=== PATIENT | male | born 1995 | race Caucasian/White ===

== ENCOUNTER 2019-01-25 14:56 | Emergency (ER) | payer SELFPAY ==
[~2019-01-25] VITALS: Ht 157.5 cm; Wt 54.4 kg
[2019-01-25 15:16] VITALS: BP 122/63
--- NOTE | 2019-01-25 15:50 | NUR ---
23 YEAR OLD MALE COMPLAINS OF NAUSEA AND VOMITTING X 2 DAYS. PATIENT STATES HE STARTED TO HAVE DIARRHEA TODAY. PATIENT STATES HE SOMETIMES FEELS PALPITATIONS IN THE PAST 2 DAYS, DENIES THEM AT THIS TIME. PATIENT BOWEL SOUNDS ACTIVE X4, NO PAIN ON PALPATION. PATIENT IS ALERT AND ORIENTED, BREATHING EVEN AND UNLABORED, SKIN DRY AND WARM. BED IN LOWEST POSITION, LOCKED, BED RAIL UPX1.
[2019-01-25] MEDS ORDERED: PROMETHAZINE 25 MG/ML VIAL IM ONE (16:15)
[2019-01-25] MEDS ORDERED: ONDANSETRON 4 MG ODT PO ONE (16:15)
[2019-01-25] MEDS ORDERED: FAMOTIDINE 20 MG TAB PO ONE (16:15)
[2019-01-25] MEDS ORDERED: KETOROLAC 60 MG/2 ML VIAL IM ONE (16:15)
--- NOTE | 2019-01-25 16:30 | NUR ---
PATIENT ALERT AND ORIENTED IN BED TALKING TO GIRLFRIEND, BREATHING EVEN AND NONLABORED, WILL CONTINUE TO MONITOR.
[2019-01-25 16:39] LABS: BARBITURATE, URINE NEG. ng/ml (NEG <=200); BENZODIAZEPINE, URINE NEG. ng/mL (NEG <=200); CANNABINOID, URINE NEG. ng/mL (NEG <=50); COCAINE, URINE NEG. ng/mL (NEG <=300); OPIATE, URINE NEG. ng/mL (NEG <=2000); PHENCYCLIDINE SCREEN,URINE NEG. ng/mL (NEG <=25)
[2019-01-25 17:04] VITALS: BP 120/63
--- NOTE | 2019-01-25 17:04 | NUR ---
Patient discharged with v/s stable. Written and verbal after care instructions ABOUT ANXIETY AND PANIC ATTACKS given and explained. Patient alert, oriented and verbalized understanding of instructions. Ambulatory with steady gait. All questions addressed prior to discharge. ID band removed. Patient advised to follow up with PMD. Rx of VISTARIL given. Patient educated on indication of medication including possible reaction and side effects. Opportunity to ask questions provided and answered. EXCUSE FROM WORK GIVEN
[2019-01-25 22:13] LABS: APPEARANCE,URINE CLEAR (CLEAR); BILIRUBIN,URINE NEGATIVE (NEGATIVE); BLOOD, URINE NEGATIVE (NEGATIVE); COLOR,URINE YELLOW (YELLOW); LEUKOCYTE ESTERASE ,URINE NEGATIVE (NEGATIVE); NITRITE, URINE NEGATIVE (NEGATIVE); PH,URINE 6.5 (5.0-9.0); UGLUCOSE NEGATIVE (NEGATIVE)
== END 2019-01-25 17:04 | disposition home or self-care (01) ==
LOC: MED 14:56
DX: F41.9 Anxiety disorder, unspecified (principal)
CPT/HCPCS: 80305; 81003; 96372; 99283; J2550; Q0162; J1885

== ENCOUNTER 2019-02-05 11:31 | Emergency (ER) | payer SELFPAY ==
[~2019-02-05] VITALS: Ht 157.5 cm; Wt 54.4 kg
[2019-02-05 11:37] VITALS: BP 134/75
--- NOTE | 2019-02-05 11:45 | NUR ---
FLU SWAB COLLECTED
--- NOTE | 2019-02-05 11:59 | NUR ---
PT BIB FAMILY C/O COUGH X2 DAYS AND FEVER, N/V, AND BODY ACHES X LAST NIGHT. PT DENIES NAUSEA AT THIS TIME. VSS. ER TO SEE PT.
--- NOTE | 2019-02-05 12:09 | NUR ---
ER AT BEDSIDE
[2019-02-05] MEDS ORDERED: KETOROLAC 30 MG/ML VIAL IM ONE (12:20)
[2019-02-05 12:52] VITALS: BP 134/75
--- NOTE | 2019-02-05 12:52 | NUR ---
Patient discharged with v/s stable. Written and verbal after care instructions given and explained. Patient alert, oriented and verbalized understanding of instructions. Ambulatory with steady gait. All questions addressed prior to discharge. ID band removed. Patient advised to follow up with PMD. Rx of TAMIFLU, MOTRIN, AND ZOFRAN given. Patient educated on indication of medication including possible reaction and side effects. Opportunity to ask questions provided and answered.
== END 2019-02-05 12:52 | disposition home or self-care (01) ==
LOC: MED 11:31
DX: J11.1 Influenza due to unidentified influenza virus with other respiratory manifestations (principal); R51 Headache; R53.1 Weakness; R11.2 Nausea with vomiting, unspecified
CPT/HCPCS: 96372; 99283; J1885